=== PATIENT | male | born 1965 | race African-American/Black ===

== ENCOUNTER 2016-08-01 12:50 | Day surgery (SDC) | payer MEDICARE, OTHER ==
[~2016-08-01 12:50] MED LIST: ALBU6.7H INH; AMLO10 PO; BACL10TA PO; CYMB60CA PO; DARU1TAB2 PO; FOLI1TAB4 PO; GABA600T PO; HYDR-3583 PO; INTE200T PO; LEVA750T PO; MOBI7.5T PO; OXYC1TAB63 PO; PRED5TAB PO; PROP20TA3 PO; SULF500T3 PO; TIZA4CAP3 PO; TRAM50TA PO
[2016-08-01 13:12] VITALS: BP 114/79; PULSE 84; RESP 20; TEMP 98.5; O2SAT 95
--- NOTE | 2016-08-01 14:43 | PD.RAD ---
Post Procedure Progress Note Pre Procedure Diagnosis: (1) Osteomyelitis of right radius Post Procedure Diagnosis: (1) Osteomyelitis of right radius Procedure Date: Aug 01, 2016 Supervising Radiologist: Osbaldo Valdes Anesthesia: Local Plan of Activity Patient to Unit: ROPU Patient Condition: Good Additional Comments: Gloria catheter removed from the right chest without difficulty See PACS Report for procedural detail/treatment Osbaldo Valdes MD Aug 01, 2016 14:43
[2016-08-01 14:45] VITALS: BP 108/72; PULSE 77; RESP 16; TEMP 98.9; O2SAT 93
--- NOTE | 2016-08-02 09:49 | RADRPT ---
EXAM DATE/TIME: 08/01/2016 00:00 [facility] COMPARISON: MCCORD CATHETER PLACEMENT W/US, RIGHT, June 08, 2016, 13:55. INDICATIONS : Patient no longer needs mccord catheter. MEDICAL HISTORY : HTN Asthma Sleep apnea GERD Hx of left leg DVT Spinal stenosis Hx of MRSA Rheumatoid arthritis SURGICAL HISTORY : Cholecystectomy Left rotator cuff repair Right wirst repair Mccord catheter placement ENCOUNTER: Subsequent ACUITY: 3 months PAIN SCORE: 6/10 LOCATION: Right upper chest around catheter PROCEDURE : 1. PermaCath removal. The risks, benefits and alternatives to the procedure were explained and verbal and written consent w as obtained. The site was prepped in sterile fashion. Full sterile technique was used, including ca p, mask, sterile gloves and gown and a large sterile sheet. Hand hygiene and 2% chlorhexidine and/or betadine/alcohol prep was utilized per protocol for cutaneous antisepsis. The skin and subcutaneous tissues were infiltrated with local anesthetic solution. The tract was anesthetized with 1% Lidocaine using. The Permcath was dissected from the subcutaneous tissues and easily removed in one piece. Manual pressure was applied to the venotomy site until hem ostasis was obtained. Sterile dressing was applied. The patient tolerated the procedure well and there were no complications. CONCLUSION: Uncomplicated Permcath removal. Osbaldo Valdes MD on August 02, 2016 at 9:35 Board Certified Radiologist. This report was verified electronically.
[2016-12-07] MEDS ORDERED: PERC7.5T13 PO (15:50)
== END 2016-08-01 15:10 | disposition home or self-care (01) ==
LOC: HROP 12:50 → HRIP 12:52 → HROP 15:10
PROVIDERS: ATTEND Orthopaedic Surgery
DX: Z45.2 Encounter for adjustment and management of vascular access device (principal); M86.8X3 Other osteomyelitis, forearm; I10 Essential (primary) hypertension; G47.30 Sleep apnea, unspecified; J45.909 Unspecified asthma, uncomplicated; K21.9 Gastro-esophageal reflux disease without esophagitis; M06.9 Rheumatoid arthritis, unspecified; Z86.718 Personal history of other venous thrombosis and embolism
CPT/HCPCS: 36581; 36589

== ENCOUNTER → 2016-09-19 | Outpatient (CLI) | payer MEDICARE, OTHER ==
[~2016-09-19] MED LIST changes: -MOBI7.5T PO; -OXYC1TAB63 PO; +PERC7.5T13 PO
[2016-09-19 10:06] LABS: AUTOMATED NEUTROPHIL # 2.5 TH/MM3 (1.8-7.7); BASOPHIL # 0.1 TH/MM3 (0-0.2); EOSINOPHIL # 0.3 TH/MM3 (0-0.4); EOSINOPHIL % 4.1 % (0.0-4.0); HEMATOCRIT 36.7 % (39.0-51.0); HEMO FLAGS DIFF FINAL; LYMPH % 42.5 % (9.0-44.0); LYMPHOCYTE # 2.6 TH/MM3 (1.0-4.8); MEAN CORPUSCULAR HEMOGLOBIN 30.5 PG (27.0-34.0); MEAN CORPUSCULAR HGB CONC 33.5 % (32.0-36.0); MONO % 11.1 % (0.0-8.0); NEUT % 41.3 % (16.0-70.0); PLATELET COUNT 209 TH/MM3 (150-450); RED BLOOD COUNT 4.03 MIL/MM3 (4.50-5.90); RED CELL DISTRIBUTION WIDTH 15.5 % (11.6-17.2); WHITE BLOOD COUNT 6.2 TH/MM3 (4.0-11.0)
[2016-09-19 10:37] LABS: ANION GAP 7 MEQ/L (5-15); AST (GOT) 22 U/L (15-37); BICARBONATE 29.4 MEQ/L (21.0-32.0); BLOOD UREA NITROGEN 13 MG/DL (7-18); CHLORIDE 108 MEQ/L (98-107); GLOMERULAR FILTRATION RATE 87 ML/MIN (>89); GLUCOSE,FASTING 86 MG/DL (74-99); POTASSIUM 3.6 MEQ/L (3.5-5.1); SODIUM (NA) 144 MEQ/L (136-145)
[2016-09-19 10:39] LABS: BLOOD, URINE NEG (NEG); CALCIUM OXALATE CRYSTALS,URINE OCC /hpf; COMMENT (UR) CULT NOT INDICATED; CULTURE IF INDICATED CULT NOT INDICATED; GLUCOSE,URINE NEG (NEG); KETONE, URINE NEG (NEG); MUCUS URINE FEW /lpf (OCC); NITRITE,URINE NEG (NEG); PH, URINE 5.5 (5.0-8.5); URINE COLOR YELLOW (YELLW/STRAW)
[2016-09-19 10:48] LABS: ALKALINE PHOSPHATASE 87 U/L (45-117); ALT (GPT) 29 U/L (12-78); TOTAL BILIRUBIN ADULT 0.3 MG/DL (0.2-1.0)
[2016-09-20 23:51] LABS: CD4/CD8 RATIO 0.7 (0.86-5.00)
[2016-09-21 19:51] LABS: HIV RNA COPIES LESS THAN 20.0 (()); HIV RNA LOG COPIES LESS THAN 1.30 (())
== END ==
LOC: CLAB 09:32
PROVIDERS: ATTEND Internal Medicine Rheumatology
DX: E87.8 Other disorders of electrolyte and fluid balance, not elsewhere classified (principal); D64.9 Anemia, unspecified; B20 Human immunodeficiency virus [HIV] disease; A53.9 Syphilis, unspecified; N39.0 Urinary tract infection, site not specified; R94.6 Abnormal results of thyroid function studies; S52.501S Unspecified fracture of the lower end of right radius, sequela; M06.9 Rheumatoid arthritis, unspecified; E88.9 Metabolic disorder, unspecified
CPT/HCPCS: 36415; 80053; 81001; 84443; 85025; 85652; 86140; 86355; 86357; 86359; 86360; 86592; 87536

== ENCOUNTER → 2016-12-07 | Day surgery (SDC) | payer MEDICARE, OTHER ==
[~2016-12-07] VITALS: Ht 177.8 cm; Wt 75.3 kg
[~2016-12-07] MED LIST changes: +*morphine SULFATE 8 MG/ML PERIprocedure ONLY ONE; +CHLORHEXIDINE GLUCONATE 2 % 1 PACK (2 CLOTHS) TOPICAL PRN; +CHLORHEXIDINE GLUCONATE 4% SOLN 120 ML BTL TOPICAL SCH; +DO NOT ADM ANY ANTICOAGULANT DRUGS PRN; +FAMOTIDINE 20 MG/2 ML VIAL ONE; +GENTAMICIN SULFATE 80 MG/2 ML VIAL ONE; +HYDROmorphone HCL PF 2 MG/ML VIAL ONE; +INSULIN HUMAN REGULAR 1,000 UNITS/10 ML VIAL SQ PRN; +KETOROLAC TROMETHAMINE 30 MG/ML (IVP) VIAL IVP ONE; +KETOROLAC TROMETHAMINE 60 MG/2 ML (IM) VIAL IM ONE; +LACTATED RINGER'S 1000 ML INJ 1,000 ML IV ONE; +LACTATED RINGER'S 1000 ML IV PRN; +METOPROLOL TARTRATE 25 MG TAB PO PRN; +MIDAZOLAM HCL 2 MG/2 ML VIAL ONE; +MORPHINE SULFATE 4 MG/ML INJ IV PUSH PRN; +NEOSTIGMINE 3 MG/3 ML SYR IV ONE; +ONDANSETRON HCL 4 MG/2 ML VIAL IV PRN; +ONDANSETRON HCL 4 MG/2 ML VIAL IV PUSH ONE; +PHENYLEPH/NS 1000 MCG/10 ML SYR IV ONE; +POVIDONE IODINE 5% (ANTISEPSIS KIT) 4 APPLICATIONS EACH NARE PRN; +PROPOFOL 200 MG/20 ML AMP IV ONE; +ROPIVACAINE 0.5% PF INJ 30 ML VIAL NERV BLOCK ONE; +SODIUM CHLORID 0.9% 500 ML IV PRN; +SODIUM CHLORIDE 0.9% FLUSH 10 ML FLUSH IV FLUSH PRN; +SODIUM CHLORIDE 0.9% FLUSH 10 ML FLUSH IV FLUSH SCH; +VANCOMYCIN 1000 MG/NS 250 ML (for <70 kg) IV SCH; +ceFAZolin 2 GM PREMIX 50 ML IV SCH; +ePHEDrine/NS 25 MG/5 ML SYR IV ONE; +fentaNYL CITRATE 250 MCG/5 ML AMP ONE; +oxyCODONE/ACETAMINOPHEN 5 MG/325 MG TAB PO PRN
[2016-12-07 11:45] VITALS: BP 108/74; PULSE 70; RESP 18; TEMP 97.9; O2SAT 98
--- NOTE | 2016-12-07 14:56 | RADRPT ---
EXAM DATE/TIME: 12/07/2016 14:35 [facility] COMPARISON: WRIST RIGHT LIMITED(AP & LAT), December 25, 2015, 15:13. INDICATIONS : ORIF right wrist. MEDICAL HISTORY : None. SURGICAL HISTORY : None. ENCOUNTER: Initial ACUITY: 1 day PAIN SCORE: Non-responsive. LOCATION: Right wrist FINDINGS: 3 intraoperative spot images of the right wrist. Old fracture deformity of the distal radius. Interna l fixation plate and transfixing screws in the distal ulna. CONCLUSION: Intraoperative views of the right wrist. Eric Gutierrez MD on December 07, 2016 at 14:52 Board Certified Radiologist. This report was verified electronically.
--- NOTE | 2016-12-07 15:53 | PD.OP ---
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 Surgeon: Jake Tarango Woodenware Assembler(s): Staff Resident Surgeon: None Operation and Findings: Patient was seen and evaluated preoperatively and found to ulnar abutment subsequent to shortening malunion of a previously fixed right distal radius fracture. Informed consent was obtained after detailed discussion of risk and benefits including bleeding, infection, injury to arteries, nerves, and blood vessels, weakness and numbness of hand, and tendon rupture. Informed consent was obtained. Patient received IV antibiotics prior to incision. Timeout procedure was performed. the RIGHT upper extremity was prepped with alcohol followed by Hibiclens and draped usual sterile fashion. The ulna was approached through the subcutaneous border between ECU and FCU. Dissection carried down circumferentially while taking care not to injure the ulnar neurovascular bundle. Ulnar positive variance was again measured and confirmed under x-ray. It measured about 1.4 cm. Osteotomy site was marked accordingly. A 6-hole, 2.7 mm plate was provisionally fixed to the distal segment prior to the planned osteotomy. Using an oscillating saw, a short oblique osteotomy was performed. The section was removed. The distal ulnar was freed circumferentially leaving ulna styloid attachments intact. Using pointed reduction clamp the osteotomy site was reduced. The plate was secured in the proximal fragment with screws eccentrically placed to provide further compression at the osteotomy site. Fluoroscopy confirmed adequately corrected ulnar variance, perfect reduction and fixation of the osteotomy. Hemostasis was obtained. The wound was thoroughly irrigated. It was closed with 3-0 Vicryl in the subcutaneous tissue followed by 2-0 nylon at the skin. IMPLANTS USED Synthes POSTP-OP PLAN OF ACTIVITY Antibiotics: none Antiocoagulation: SCD, OOB TID Weight bearing status: NWB Dressing: Do not remove Dispo: expected discharge home from PACU/ASU Jake Tarango Jr., MD Dec 07, 2016 15:53
[2016-12-07 17:46] VITALS: BP 116/70; PULSE 64; RESP 18; TEMP 98; O2SAT 96
== END | disposition home or self-care (01) ==
LOC: HSDC 10:32
PROVIDERS: ATTEND Orthopaedic Surgery
DX: S52.501P Unspecified fracture of the lower end of right radius, subsequent encounter for closed fracture with malunion (principal); M24.831 Other specific joint derangements of right wrist, not elsewhere classified; I10 Essential (primary) hypertension; K21.9 Gastro-esophageal reflux disease without esophagitis; M06.9 Rheumatoid arthritis, unspecified; Z21 Asymptomatic human immunodeficiency virus [HIV] infection status; F32.9 Major depressive disorder, single episode, unspecified; F17.200 Nicotine dependence, unspecified, uncomplicated; Z86.718 Personal history of other venous thrombosis and embolism; X58.XXXD Exposure to other specified factors, subsequent encounter
CPT/HCPCS: 73100; 76000; 86850; 86900; 86901; C1713; J0690; J1170; J1580; J1885; J2250; J2270; J2370; J2405; J2710; J2795; J3010; J3370; J7050; J7120

== ENCOUNTER 2017-01-16 20:22 | Observation (INO) | payer MEDICARE, OTHER ==
[~2017-01-16] VITALS: Ht 177.8 cm; Wt 80.0 kg
[~2017-01-16 20:22] MED LIST changes: -*morphine SULFATE 8 MG/ML PERIprocedure ONLY ONE; -CHLORHEXIDINE GLUCONATE 2 % 1 PACK (2 CLOTHS) TOPICAL PRN; -CHLORHEXIDINE GLUCONATE 4% SOLN 120 ML BTL TOPICAL SCH; -DO NOT ADM ANY ANTICOAGULANT DRUGS PRN; -FAMOTIDINE 20 MG/2 ML VIAL ONE; -GENTAMICIN SULFATE 80 MG/2 ML VIAL ONE; -HYDROmorphone HCL PF 2 MG/ML VIAL ONE; -INSULIN HUMAN REGULAR 1,000 UNITS/10 ML VIAL SQ PRN; -KETOROLAC TROMETHAMINE 30 MG/ML (IVP) VIAL IVP ONE; -KETOROLAC TROMETHAMINE 60 MG/2 ML (IM) VIAL IM ONE; -LACTATED RINGER'S 1000 ML INJ 1,000 ML IV ONE; -LACTATED RINGER'S 1000 ML IV PRN; -LEVA750T PO; -METOPROLOL TARTRATE 25 MG TAB PO PRN; -MIDAZOLAM HCL 2 MG/2 ML VIAL ONE; -MORPHINE SULFATE 4 MG/ML INJ IV PUSH PRN; -NEOSTIGMINE 3 MG/3 ML SYR IV ONE; -ONDANSETRON HCL 4 MG/2 ML VIAL IV PRN; -ONDANSETRON HCL 4 MG/2 ML VIAL IV PUSH ONE; -PHENYLEPH/NS 1000 MCG/10 ML SYR IV ONE; -POVIDONE IODINE 5% (ANTISEPSIS KIT) 4 APPLICATIONS EACH NARE PRN; -PROPOFOL 200 MG/20 ML AMP IV ONE; -ROPIVACAINE 0.5% PF INJ 30 ML VIAL NERV BLOCK ONE; -SODIUM CHLORID 0.9% 500 ML IV PRN; -SODIUM CHLORIDE 0.9% FLUSH 10 ML FLUSH IV FLUSH PRN; -SODIUM CHLORIDE 0.9% FLUSH 10 ML FLUSH IV FLUSH SCH; -VANCOMYCIN 1000 MG/NS 250 ML (for <70 kg) IV SCH; -ceFAZolin 2 GM PREMIX 50 ML IV SCH; -ePHEDrine/NS 25 MG/5 ML SYR IV ONE; -fentaNYL CITRATE 250 MCG/5 ML AMP ONE; -oxyCODONE/ACETAMINOPHEN 5 MG/325 MG TAB PO PRN
[2017-01-16 20:32] VITALS: BP 131/76; PULSE 78; RESP 16; TEMP 98.9; O2SAT 97
[2017-01-16 20:35] VITALS: BP 131/76; PULSE 73; RESP 14; TEMP 98.9; O2SAT 98
[2017-01-16 20:45] VITALS: RESP 20; O2SAT 98
[2017-01-16] MEDS ORDERED: SODIUM CHLORIDE 0.9% FLUSH 10 ML FLUSH IVF PRN (20:45)
[2017-01-16 21:02] LABS: AUTOMATED NEUTROPHIL # 2.4 TH/MM3 (1.8-7.7); BASOPHIL % 0.7 % (0.0-2.0); EOSINOPHIL # 0.1 TH/MM3 (0-0.4); EOSINOPHIL % 2.1 % (0.0-4.0); HEMATOCRIT 34.6 % (39.0-51.0); HEMO FLAGS DIFF FINAL; LYMPH % 49.6 % (9.0-44.0); MEAN CELL VOLUME 81.7 FL (80.0-100.0); MEAN CORPUSCULAR HEMOGLOBIN 27.4 PG (27.0-34.0); MEAN CORPUSCULAR HGB CONC 33.6 % (32.0-36.0); MONO % 8.1 % (0.0-8.0); NEUT % 39.5 % (16.0-70.0); PLATELET COUNT 210 TH/MM3 (150-450); RED BLOOD COUNT 4.24 MIL/MM3 (4.50-5.90); RED CELL DISTRIBUTION WIDTH 15.1 % (11.6-17.2)
[2017-01-16 21:14] LABS: APTT (PATIENT) 22.9 SEC (24.3-30.1); PROTHROMBIN TIME - PATIENT 10.5 SEC (9.8-11.6)
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
[2017-01-16] MEDS ORDERED: MORPHINE SULFATE 8 MG/ML INJ ONE (21:24)
--- NOTE | 2017-01-16 21:29 | RADRPT ---
EXAM DATE/TIME: 01/16/2017 21:01 [facility] COMPARISON: No previous studies available for comparison. INDICATIONS : Chest pain for 1 week MEDICAL HISTORY : None. SURGICAL HISTORY : None. ENCOUNTER: Initial ACUITY: 1 week PAIN SCORE: 6/10 LOCATION: Bilateral chest FINDINGS: A single view of the chest demonstrates the lungs to be symmetrically aerated without evidence of mas s, infiltrate or effusion. The cardiomediastinal contours are unremarkable. Osseous structures are intact. CONCLUSION: No acute disease. Owen Valdes MD FACR on January 16, 2017 at 21:27 Board Certified Radiologist. This report was verified electronically.
[2017-01-16] MEDS ORDERED: MORPHINE SULFATE 4 MG/ML INJ IV PUSH ONE (21:30)
[2017-01-16] MEDS ORDERED: ONDANSETRON HCL 4 MG/2 ML VIAL IV PUSH ONE (21:30)
[2017-01-16] MEDS ORDERED: SODIUM CHLOR 0.9% 1000 ML INJ 1,000 ML IV ONE ×2 (21:30→22:45)
[2017-01-16 21:58] LABS: ALKALINE PHOSPHATASE 79 U/L (45-117); ALT (GPT) 14 U/L (12-78); ANION GAP 9 MEQ/L (5-15); AST (GOT) 11 U/L (15-37); BLOOD UREA NITROGEN 15 MG/DL (7-18); CHLORIDE 104 MEQ/L (98-107); GLOMERULAR FILTRATION RATE 72 ML/MIN (>89); MAGNESIUM 1.4 MG/DL (1.5-2.5); SODIUM (NA) 141 MEQ/L (136-145); TOTAL BILIRUBIN ADULT 0.3 MG/DL (0.2-1.0)
[2017-01-16 22:02] LABS: POTASSIUM 2.9 MEQ/L (3.5-5.1)
[2017-01-16] MEDS ORDERED: POTASSIUM CHLORIDE 10 MEQ CONTROLLED RELEASE TAB PO ONE (22:15)
--- NOTE | 2017-01-16 22:18 | EKG ---
Date Performed: 01/16/2017 Time Performed: 20:39:50 PTAGE: 51 years EKG: Sinus rhythm MINIMAL VOLTAGE CRITERIA FOR LVH, CONSIDER NORMAL VARIANT NONSPECIFIC T-WAVE ABNORMALITY BORDERLINE ECG PREVIOUS TRACING : 06/04/2016 14.12 No significant change from previous tracing noted. DOCTOR: Jose Miguel Michael Interpretating Date/Time 01/16/2017 22:16:02
[2017-01-16] MEDS ORDERED: ONDANSETRON HCL 4 MG/2 ML VIAL IV PRN (22:45)
[2017-01-16] MEDS ORDERED: ACETAMINOPHEN 500 MG CPLT PO PRN (22:45)
[2017-01-16] MEDS ORDERED: SODIUM CHLORIDE 0.9% FLUSH 10 ML FLUSH IV FLUSH PRN (22:45)
[2017-01-16] MEDS ORDERED: ASPIRIN 81 MG CHEW TAB PO ONE (22:45)
[2017-01-16] MEDS ORDERED: NITROGLYCERIN 0.4 MG SL 25 TABS/BTL SL PRN (22:45)
[2017-01-16] MEDS ORDERED: KETOROLAC TROMETHAMINE 30 MG/ML (IVP) VIAL IV PUSH ONE (22:45)
[2017-01-16] MEDS: SODIUM CHLOR 0.9% 1000 ML INJ 1,000 ML IV SCH (23:00)
[2017-01-17] VITALS (7 sets, daily range): BP systolic 91–123; BP diastolic 56–79; PULSE 59–72; RESP 16–17; TEMP 98.2–98.5; O2SAT 97–100
[2017-01-17] MEDS ORDERED: PANTOPRAZOLE SOD 40 MG DELAYED RELEASE TAB PO ONE
[2017-01-17] MEDS ORDERED: ALUMINUM/MAGNESIUM/SIMETH 30 ML CUP PO ONE
[2017-01-17 00:27] LABS: CREATINE KINASE 188 U/L (39-308)
--- NOTE | 2017-01-17 00:29 | PD ---
Data Data Last Documented VS Vital Signs Date Time Temp Pulse Resp B/P Pulse Ox O2 Delivery O2 Flow Rate FiO2 01/16/17 20:45 98 Room Air 01/16/17 20:45 20 01/16/17 20:35 98.9 73 131/76 Orders Electrocardiogram (01/16/17 20:43) Complete Blood Count With Diff (01/16/17 20:43) Comprehensive Metabolic Panel (01/16/17 20:43) Magnesium (Mg) (01/16/17 20:43) Prothrombin Time / Inr (Pt) (01/16/17 20:43) Act Partial Throm Time (Ptt) (01/16/17 20:43) Troponin I (01/16/17 20:43) Lipase (01/16/17 20:43) Chest, Single Ap (01/16/17 20:43) Ecg Monitoring (01/16/17 20:43) Iv Access Insert/Monitor (01/16/17 20:43) Oximetry (01/16/17 20:43) Oxygen Administration (01/16/17 20:43) Sodium Chloride 0.9% Flush (Ns Flush) (01/16/17 20:45) Morphine Inj (Morphine Inj) (01/16/17 21:30) Ondansetron Inj (Zofran Inj) (01/16/17 21:30) Sodium Chlor 0.9% 1000 Ml Inj (Ns 1000 M (01/16/17 21:30) Morphine Inj (Morphine Inj) (01/16/17 21:24) Potassium Chloride (Kcl) (01/16/17 22:15) Ketorolac Inj (Toradol Inj) (01/16/17 22:45) Sodium Chlor 0.9% 1000 Ml Inj (Ns 1000 M (01/16/17 22:45) Admit Order (Ed Use Only) (01/16/17 22:44) Labs Laboratory Tests Test 01/16/17 20:41 White Blood Count 6.0 TH/MM3 Red Blood Count 4.24 MIL/MM3 Hemoglobin 11.6 GM/DL Hematocrit 34.6 % Mean Corpuscular Volume 81.7 FL Mean Corpuscular Hemoglobin 27.4 PG Mean Corpuscular Hemoglobin 33.6 % Concent Red Cell Distribution Width 15.1 % Platelet Count 210 TH/MM3 Mean Platelet Volume 8.4 FL Neutrophils (%) (Auto) 39.5 % Lymphocytes (%) (Auto) 49.6 % Monocytes (%) (Auto) 8.1 % Eosinophils (%) (Auto) 2.1 % Basophils (%) (Auto) 0.7 % Neutrophils # (Auto) 2.4 TH/MM3 Lymphocytes # (Auto) 3.0 TH/MM3 Monocytes # (Auto) 0.5 TH/MM3 Eosinophils # (Auto) 0.1 TH/MM3 Basophils # (Auto) 0.0 TH/MM3 CBC Comment DIFF FINAL Differential Comment Prothrombin Time 10.5 SEC Prothromb Time International 1.0 RATIO Ratio Activated Partial 22.9 SEC Thromboplast Time Sodium Level 141 MEQ/L Potassium Level 2.9 MEQ/L Chloride Level 104 MEQ/L Carbon Dioxide Level 28.0 MEQ/L Anion Gap 9 MEQ/L Blood Urea Nitrogen 15 MG/DL Creatinine 1.28 MG/DL Estimat Glomerular Filtration 72 ML/MIN Rate Random Glucose 80 MG/DL Calcium Level 9.3 MG/DL Magnesium Level 1.4 MG/DL Total Bilirubin 0.3 MG/DL Aspartate Amino Transf 11 U/L (AST/SGOT) Alanine Aminotransferase 14 U/L (ALT/SGPT) Alkaline Phosphatase 79 U/L Troponin I LESS THAN 0.02 NG/ML Total Protein 6.7 GM/DL Albumin 3.3 GM/DL Lipase 159 U/L Total Creatine Kinase 188 U/L [facility] Supervised Visit with JUAN DANIEL: Yes Narrative Course The history, exam, and medical decision-making in the associated mid-level provider note were completed with my assistance. I reviewed and agree with the findings presented. I attest that I had a [id number] encounter with the patient on the same day, and personally performed and documented my assessment and findings in the medical record. *My assessment and Findings: 51-year-old man presents emergency Department with chest pain. Use cocaine about a week or so ago. No other risk factors. Symptoms been constant, more on the right sided chest, radiating through to the back. His gallbladder taken out already. He has an arm fracture and is been taking ibuprofen daily for a couple months. I think this is likely gastritis. Given his cocaine use, difficult to completely exclude cardiac disease. We'll plan on admission to the chest pain Center for serial cardiac enzymes. Diagnosis Primary Impression: Chest pain Qualified Code: R07.9 - Chest pain, unspecified type Additional Impression: RUQ abdominal pain Condition: Stable Pastor Giraldo MD Jan 17, 2017 00:29
[2017-01-17 00:46] LABS: CREATINE KINASE 159 U/L (39-308)
[2017-01-17 00:47] LABS: CKMB 1.1 NG/ML (0.5-3.6)
[2017-01-17 00:58] LABS: CKMB 1.1 NG/ML (0.5-3.6)
[2017-01-17] MEDS: MAGNESIUM SULFATE 1 GM PREMIX 100 ML IV SCH ×2 (01:36→02:42)
[2017-01-17 05:08] LABS: CREATINE KINASE 113 U/L (39-308)
[2017-01-17 05:21] LABS: CKMB 1.2 NG/ML (0.5-3.6)
[2017-01-17] MEDS ORDERED: MORPHINE SULFATE 4 MG/ML INJ IV PUSH ONE (07:15)
[2017-01-17] MEDS ORDERED: MORPHINE SULFATE 8 MG/ML INJ IV PUSH ONE (08:00)
[2017-01-17] MEDS ORDERED: SODIUM CHLORIDE 0.9% FLUSH 10 ML FLUSH IV FLUSH SCH (09:00)
[2017-01-17] MEDS: SODIUM CHLOR 0.9% 1000 ML INJ 1,000 ML IV SCH (09:50)
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
[2017-01-17] MEDS ORDERED: ZANT150T2 PO (10:38)
--- NOTE | 2017-01-17 10:38 | HHI.DCPOC ---
Discharge Care Plan Diagnosis: (1) Atypical chest pain (2) GERD (gastroesophageal reflux disease) Goals to Promote Your Health * To prevent worsening of your condition and complications * To maintain your health at the optimal level Directions to Meet Your Goals Take your medications as prescribed Follow your dietary instruction Follow activity as directed Keep your appointments as scheduled Take your immunizations and boosters as scheduled If your symptoms worsen call your PCP, if no PCP go to Urgent Care Center or Emergency Room Smoking is Dangerous to Your Health. Avoid second hand smoke Call the 24-hour hour crisis hotline for domestic abuse at Shila ChavezP Jan 17, 2017 10:38
--- NOTE | 2017-01-17 13:25 | EKG ---
Date Performed: 01/16/2017 Time Performed: 23:35:47 PTAGE: 51 years EKG: Sinus rhythm MODERATE VOLTAGE CRITERIA FOR LVH, CONSIDER NORMAL VARIANT NONSPECIFIC T-WAVE ABNORMALITY BORDERLINE ECG PREVIOUS TRACING : 01/16/2017 20.39 Since previous tracing, no significant change noted DOCTOR: Ld Hicks Interpretating Date/Time 01/17/2017 13:16:28
--- NOTE | 2017-01-17 13:25 | EKG ---
Date Performed: 01/17/2017 Time Performed: 04:29:02 PTAGE: 51 years EKG: Sinus rhythm NONSPECIFIC T-WAVE ABNORMALITY BORDERLINE ECG PREVIOUS TRACING : 01/17/2017 04.28 Since previous tracing, no significant change noted DOCTOR: Ld Hicks Interpretating Date/Time 01/17/2017 13:14:33
--- NOTE | 2017-01-17 13:26 | TR ---
Date Performed: 01/17/2017 Time Performed: 09:25:35 DOCTOR: Ld Hicks DRUG LIST: CLINICAL HISTORY: CHEST PAIN REASON FOR TEST: REASON FOR ENDING: OBSERVATION: CONCLUSION: Terry protocol completed. Stopped sec to reaching target heart rate and leg fatigue. Maximum DZ=625 Target HR Achieved=87.0% Maximum AJ=610/76 Total Exercise Time=9:01. No reprod chest pain. No ectopy. Good exercise tolerance. Normal bp response. Recovery quick and unremarkable. COMMENTS: Patient exercised using the Terry protocol. No electrocardiographic changes were seen to suggest ischemia. Hemodynamic response to exercise was normal. No significant arrhythmia was prese nt.
== END 2017-01-17 13:02 | disposition home or self-care (01) ==
LOC: NEPC 20:22 → NEDA 22:45 → NEPHCDU 01-17 01:11
PROVIDERS: ADMIT Internal Medicine Interventional Cardiology; ATTEND Internal Medicine Interventional Cardiology
DX: R07.89 Other chest pain (principal); R10.11 Right upper quadrant pain; M25.511 Pain in right shoulder; K21.9 Gastro-esophageal reflux disease without esophagitis; I10 Essential (primary) hypertension; J45.909 Unspecified asthma, uncomplicated; M06.9 Rheumatoid arthritis, unspecified; G47.30 Sleep apnea, unspecified; F41.9 Anxiety disorder, unspecified; M48.00 Spinal stenosis, site unspecified; F14.10 Cocaine abuse, uncomplicated; F17.210 Nicotine dependence, cigarettes, uncomplicated; Z79.899 Other long term (current) drug therapy; Z79.1 Long term (current) use of non-steroidal anti-inflammatories (NSAID)
CPT/HCPCS: 71010; 80053; 82550; 82552; 83690; 83735; 84132; 84484; 85025; 85610; 85730; 93005; 93017; 96374; 96375; 99285; G0378; J1885; J2270; J2405; J3475; J7030

== ENCOUNTER → 2017-09-23 | Outpatient (CLI) | payer MEDICARE ==
[~2017-09-23] MED LIST changes: -BACL10TA PO; -FOLI1TAB4 PO; -INTE200T PO; +INTE200T2 PO; +ZANT150T2 PO
[2017-09-23 08:05] LABS: AUTOMATED NEUTROPHIL # 1.3 TH/MM3 (1.8-7.7); BASOPHIL % 0.9 % (0.0-2.0); EOSINOPHIL # 0.1 TH/MM3 (0-0.4); EOSINOPHIL % 2.6 % (0.0-4.0); HEMATOCRIT 39.4 % (39.0-51.0); HEMOGLOBIN 13.2 GM/DL (13.0-17.0); LYMPH % 37.2 % (9.0-44.0); LYMPHOCYTE # 1.1 TH/MM3 (1.0-4.8); MEAN CORPUSCULAR HEMOGLOBIN 28.8 PG (27.0-34.0); MEAN CORPUSCULAR HGB CONC 33.5 % (32.0-36.0); MEAN PLATELET VOLUME 7.3 FL (7.0-11.0); MONO % 16.6 % (0.0-8.0); MONOCYTE # 0.5 TH/MM3 (0-0.9); NEUT % 42.7 % (16.0-70.0); PLATELET COUNT 214 TH/MM3 (150-450); RED BLOOD COUNT 4.59 MIL/MM3 (4.50-5.90); RED CELL DISTRIBUTION WIDTH 17.3 % (11.6-17.2); WHITE BLOOD COUNT 2.9 TH/MM3 (4.0-11.0)
[2017-09-23 08:35] LABS: ALBUMIN 3.4 GM/DL (3.4-5.0); AST (GOT) 22 U/L (15-37); BICARBONATE 26.1 MEQ/L (21.0-32.0); BLOOD UREA NITROGEN 11 MG/DL (7-18); CALCIUM 8.9 MG/DL (8.5-10.1); CHLORIDE 108 MEQ/L (98-107); GLOMERULAR FILTRATION RATE 86 ML/MIN (>89); GLUCOSE,FASTING 91 MG/DL (74-99); SODIUM (NA) 141 MEQ/L (136-145)
[2017-09-23 08:36] LABS: BACTERIA, URINE OCC /hpf; BILIRUBIN, URINE NEG (NEG); BLOOD, URINE NEG (NEG); CALCIUM OXALATE CRYSTALS,URINE FEW /hpf; GLUCOSE,URINE NEG (NEG); KETONE, URINE NEG (NEG); MUCUS URINE MOD /lpf (OCC); NITRITE,URINE NEG (NEG); URINE COLOR YELLOW (YELLW/STRAW); URINE LEUKOCYTE ESTERASE NEG (NEG)
[2017-09-23 08:36] LABS: CHOLESTEROL 131 MG/DL (120-200); TRIGLYCERIDES 75 MG/DL (42-150)
[2017-09-23 08:47] LABS: ALKALINE PHOSPHATASE 109 U/L (45-117); ALT (GPT) 22 U/L (12-78); CHOLESTEROL/ HDL RATIO 2.19 RATIO; HDL CHOLESTEROL 59.8 MG/DL (40.0-60.0); LDL CHOLESTEROL 56 MG/DL (0-99); TOTAL BILIRUBIN ADULT 0.2 MG/DL (0.2-1.0); TOTAL PROTEIN 7.3 GM/DL (6.4-8.2)
[2017-09-26 17:58] LABS: ABACAVIR SUSC; ATAZANAVIR WITH RITONAVIR SUSC; DARUNAVIR WITH RITONAVIR SUSC; DIDANOSINE SUSC; EFAVIRENZ SUSC; ETRAVIRINE SUSC; FOSAMPRENAVIR WITH RITONAVIR SUSC; HIV-1 GENOTYPING INTERP; INDINAVIR WITH RITONAVIR SUSC; LOPINAVIR WITH RITONAVIR SUSC; NELFINAVIR SUSC; NEVIRAPINE SUSC; PROTEASE MUTATIONS L10I; SAQUINAVIR WITH RITONAVIR SUSC; STAVUDINE SUSC; TENOFOVIR SUSC; TIPRANAVIR WITH RITONAVIR SUSC; ZIDOVUDINE SUSC
[2017-09-27 03:52] LABS: CD3-/CD16+CD56+ PERCENT 11 % (4-25); CD3-CD16+CD56+ (ABSOLUTE) 117 (70-760); LYMPHOCYTES, ABSOLUTE 1098 (850-3900)
== END ==
LOC: CLAB 07:06
DX: N39.0 Urinary tract infection, site not specified (principal); E87.8 Other disorders of electrolyte and fluid balance, not elsewhere classified; D64.9 Anemia, unspecified; B20 Human immunodeficiency virus [HIV] disease; E78.4 Other hyperlipidemia; K75.9 Inflammatory liver disease, unspecified; A53.9 Syphilis, unspecified; R94.6 Abnormal results of thyroid function studies; E55.9 Vitamin D deficiency, unspecified; M05.89 Other rheumatoid arthritis with rheumatoid factor of multiple sites; Z79.899 Other long term (current) drug therapy
CPT/HCPCS: 36415; 80053; 80061; 80074; 81001; 82306; 84443; 85025; 85652; 86140; 86355; 86357; 86359; 86360; 86592; 87536; 87901